=== PATIENT | female | born 2000 | race Asian ===

== ENCOUNTER 2025-06-04 19:33 | Emergency (ER) | payer SELFPAY ==
--- NOTE | 2025-06-04 19:54 | ED.GENMED ---
History of Present Illness
General
Chief Complaint: Blood and Body Fluid Exposure
Source: patient
Exam Limitations: none
Time Seen by Provider: 06/04/25 19:53
Nursing documentation reviewed up to this point in time: agreed with
History of Present Illness
History of Present Illness:
24-year-old female presents for evaluation after occupational exposure/needlestick. Patient was placing an IV and was accidentally poked with a needle. No other acute issues. Source patient available for testing�generally healthy no known history
of HIV or hepatitis.
Review of Systems
Review of Systems
All Other Systems: ROS reviewed and negative except as documented in HPI and ROS
Phy Exam
Physical Exam
Physical Exam:
General: Well appearing and non-toxic
HEENT: protecting airway
Neck: appears supple
CV: No evidence of cyanosis
Resp: No accessory muscle use
Abd: Non-distended
Extremities: No deformities
Neuro: Alert, ambulatory
Psych: Normal affect
Scores
Heart Failure Risk
Heart Failure Risk Score: Not Applicable
Heart Score for Chest Pain Patients
STEMI patient?: Not applicable
Withdrawal Assessment of Alcohol
Withdrawal Assessment Completed?: Not applicable
Course
Orders/Labs/Results
Orders:
Orders
06/04/25 19:54
Pt has had a significant HIV exposure? Routine
HIV Exposure is significant?: No
Complete Blood Count/With Diff Urgent
Comprehensive Metabolic Panel Urgent
HCG, Serum Qualitative Screen Urgent
HIV Combo Urgent
Hepatitis B Surface Antibody Urgent
Hepatitis B Surface Antigen Urgent
Hepatitis C Antibody Urgent
Test Result ONCE
MDM/Problems Addressed
Differential Diagnosis Includes:
Needlestick
MDM/Problems Addressed:
24-year-old female presents after occupational exposure/needlestick. Will send screening labs. Low risk exposure will test source patient. Hold off on postexposure prophylaxis. Follow-up with occupational health.
*Pulse Oximetry
Patient hypoxic: no (100)
*Critical Care Note
Total Time (30-74mins, 75-104mins- exclusive of procedures): Not Applicable
Data Reviewed
Source: patient
Prescriptions/Medications Considered But Not Given:
Considered postexposure prophylaxis for HIV
ED Attending Note
-
Portions of this chart may have been created with voice recognition software.� Occasional wrong word or��sound alike� substitutions may have occurred due to the inherent limitations of voice recognition software.
Discharge Plan
Departure
Patient Disposition: Home (Routine Discharge)
Date of Disposition: 06/04/25
Time of Disposition: 19:57
Patient with high blood pressure during this ER visit?: No
Discharge Problem:
Needlestick injury accident
Instructions: Exposure to HIV or hepatitis through blood or body fluids
Referrals:
[facility] [Spec[facility] Professional Person[facility]] - Tomorrow
Stand Alone Forms: Bl/Fluid Consent/Declination, Blood Body/Fluid Exposure
Discharge Date and Time
Print Language: BELARUSIAN
[2025-06-04 20:28] LABS: Hematocrit 41.3 % (37.0-47.0); Hemoglobin 14.4 g/dL (12.0-16.0); Mean Corp Hgb Conc. 34.9 g/dL (33.0-37.0); Mean Corpuscular Volume 87.5 fL (81.0-99.0); Nucleated Red Blood Cells % 0 %; Platelet Count 275 10^3/uL (130-400); Red Cell Dist. Width 12.6 % (11.5-14.5)
[2025-06-04 20:38] LABS: HCG, Serum Qualitative Screen Negative
[2025-06-04 20:39] LABS: ALT (SGPT) 17 U/L (0-35); AST (SGOT) 19 U/L (14-36); Albumin 4.9 g/dl (3.5-5.0); Alkaline Phosphatase 81 U/L (38-126); Blood Urea Nitrogen 20 mg/dl (7-17); Calcium 10.0 mg/dl (8.4-10.2); Carbon Dioxide 24 mmol/L (22-30); Chloride 106 mmol/L (98-107); Glucose 104 mg/dl (70-99); Potassium 4.1 mmol/L (3.5-5.1); Sodium 137 mmol/L (135-145); Total Protein 8.0 g/dl (6.3-8.2); eGFR > 60.00
[2025-06-04 21:00] VITALS: BP 121/81
[2025-06-04 21:34] LABS: Hepatitis B Surface Antigen Negative (Negative)
[2025-06-04 21:52] LABS: Hepatitis C Antibody Negative (Negative)
== END 2025-06-04 21:15 | disposition home or self-care (01) ==
LOC: EMR 19:33
PROVIDERS: EMERGENCY PHYSICIAN Emergency Medicine; FAMILY PHYSICIAN Hospitalist
DX: Z77.21 Contact with and (suspected) exposure to potentially hazardous body fluids (principal); W46.0XXA Contact with hypodermic needle, initial encounter; Y99.0 Civilian activity done for income or pay
CPT/HCPCS: 99283; 80053; 84703; 85025; 86706; 86803; 87340; 87389